=== PATIENT | female | born 1990 | race Two or more races ===

== ENCOUNTER 2020-04-23 12:11 | Emergency (ER) | payer OTHER ==
[~2020-04-23] VITALS: Ht 157.5 cm; Wt 61.2 kg
== END 2020-04-23 14:43 | disposition home or self-care (01) ==
LOC: ER 12:11
DX: S61.012A Laceration without foreign body of left thumb without damage to nail, initial encounter (principal); W26.0XXA Contact with knife, initial encounter; Y93.G3 Activity, cooking and baking; Y92.090 Kitchen in other non-institutional residence as the place of occurrence of the external cause; Y99.8 Other external cause status